=== PATIENT | female | born 1950 | race African-American/Black ===

== ENCOUNTER 2022-04-20 09:23 | Emergency (ER) | payer MEDICARE, MEDICAID ==
[~2022-04-20] VITALS: Ht 162.6 cm; Wt 82.0 kg
[2022-04-20 09:31] VITALS: BP 146/72
== END 2022-04-20 14:52 | disposition home or self-care (01) ==
LOC: ER 10:00
DX: H57.10 Ocular pain, unspecified eye (principal); Z59.00 Homelessness unspecified; J45.909 Unspecified asthma, uncomplicated; I10 Essential (primary) hypertension
CPT/HCPCS: 99283

== ENCOUNTER 2023-06-17 04:49 | Emergency (ER) | payer MEDICARE, MEDICAID ==
[~2023-06-17] VITALS: Ht 157.5 cm; Wt 111.0 kg
[2023-06-17 05:02] VITALS: BP 136/70; RESP 16; O2SAT 99
[2023-06-17 05:06] VITALS: PULSE 77
[2023-06-17] MEDS ORDERED: ACETAMINOPHEN 325MG TABLET PO ONE (06:45)
[2023-06-17 08:30] VITALS: TEMP 98.1
[2023-06-17] MEDS ORDERED: ACETAMINOPHEN 325MG TABLET PO NR (08:30)
[2023-06-17] MEDS ORDERED: TOPUD PO (09:12)
== END 2023-06-17 09:39 | disposition home or self-care (01) ==
LOC: ER 04:49
DX: M79.604 Pain in right leg (principal); J45.909 Unspecified asthma, uncomplicated; I10 Essential (primary) hypertension; Z88.0 Allergy status to penicillin
CPT/HCPCS: 73030; 73560; 93970; 99284